=== PATIENT | male | born 1985 | race Caucasian/White ===

== ENCOUNTER 2021-10-14 14:52 | Outpatient (REF) | payer OTHER, SELFPAY ==
--- NOTE | ~2021-10-14 | XR_ITS ---
EXAMINATION: LEFT SHOULDER. C-SPINE. CLINICAL INFORMATION: Pain. Pain. COMPARISON: None TECHNIQUE: 3 views of the left shoulder. 2 views of the C-spine. FINDINGS: Left shoulder: There is no fracture, dislocation or destructive process. C-spine: No fracture or destructive lesion or alignment canal. Vertebral body and disc spaces are preserved. The lateral masses of C1 and odontoid are intact. XR/XR cervical spine 3V IMPRESSION: Unremarkable studies.
--- NOTE | ~2021-10-14 | XR_ITS ---
EXAMINATION: LEFT SHOULDER. C-SPINE. CLINICAL INFORMATION: Pain. Pain. COMPARISON: None TECHNIQUE: 3 views of the left shoulder. 2 views of the C-spine. FINDINGS: Left shoulder: There is no fracture, dislocation or destructive process. C-spine: No fracture or destructive lesion or alignment canal. Vertebral body and disc spaces are preserved. The lateral masses of C1 and odontoid are intact. XR/XR shoulder LT min 2V IMPRESSION: Unremarkable studies.
== END 2021-10-14 14:53 | disposition home or self-care (01) ==
LOC: HO.HMGCX 14:52
PROVIDERS: PCP Internal Medicine; Visit Provider Internal Medicine
DX: M25.512 Pain in left shoulder (principal); M75.82 Other shoulder lesions, left shoulder; M54.2 Cervicalgia
CPT/HCPCS: 72040; 73030

== ENCOUNTER → 2021-12-29 08:29 | Outpatient (BNVA) | payer OTHER, SELFPAY | PROVIDERS: PCP Internal Medicine; Visit Provider Physician Assistant | DX: M75.102 Unspecified rotator cuff tear or rupture of left shoulder, not specified as traumatic (principal) | CPT/HCPCS: 20610; 99202; J1040 ==

== ENCOUNTER → 2022-02-25 11:24 | Outpatient (BNVA) | payer OTHER, SELFPAY | PROVIDERS: PCP Internal Medicine; Visit Provider Physician Assistant | DX: M75.102 Unspecified rotator cuff tear or rupture of left shoulder, not specified as traumatic (principal) | CPT/HCPCS: 99212 ==

== ENCOUNTER 2022-12-01 09:03 | Outpatient (REF) | payer BC, MEDICAID, SELFPAY ==
[2022-12-01 11:27] LABS: MANUAL DIFF FLAG NO
[2022-12-01 12:03] LABS: Basophils Absolute Auto 0.1 X10*3/uL (0.0-0.2); Basophils Percent Auto 1.2 % (0-2); Eosinophils Absolute Auto 0.2 X10*3/uL (0.0-0.4); Eosinophils Percent Auto 2.9 % (0-4); Hematocrit 43.8 % (42.0-52.0); Imm Gran Abs Auto 0.05 X10*3/uL (0.00-0.03); Imm Gran Pct Auto 0.8 % (0.0-0.4); Lymphocytes Absolute Auto 1.8 X10*3/uL (1.2-4.9); Lymphocytes Percent Auto 29.9 % (20-40); Mean Corpuscular HGB Conc 34.2 g/dl (31.0-36.0); Mean Corpuscular Hemoglobin 29.6 pg (27.0-33.0); Mean Corpuscular Volume 86.4 fL (80.0-98.0); Mean Platelet Volume 10.7 fL (9.4-12.4); Monocytes Absolute Auto 0.5 X10*3/uL (0.1-1.2); Monocytes Percent Auto 9.1 % (2-11); Neutrophils Absolute Auto 3.3 x10*3/uL (2.0-8.3); Neutrophils Percent Auto 56.1 % (45-73); Platelet Count 311 X10*3/uL (160-400); Red Blood Count 5.07 X10*6/uL (4.60-5.80); Red Cell Distribution Width 12.9 % (11.0-16.0); White Blood Count 5.9 X10*3/uL (4.8-10.8)
[2022-12-01 12:11] LABS: Alanine Aminotransferase 197 U/L (0-40); Albumin Level 4.1 g/dL (3.5-5.0); Alkaline Phosphatase 73 U/L (39-117); Anion Gap 13 (12-20); Aspartate Amino Transferase 73 U/L (5-37); Bilirubin Total 0.6 mg/dL (0.0-1.0); Blood Urea Nitrogen 11 mg/dL (9-16); Calcium 9.2 mg/dL (8.4-10.2); Carbon Dioxide 27 mmol/L (22-29); Chloride 106 mmol/L (96-108); Cholesterol 178 mg/dL; Estimated Glomerular Filt Rate > 60; Glucose Fasting 94 mg/dL (60-99); HDL Cholesterol 34 mg/dL; LDL Cholesterol Calculated 125 mg/dl; Potassium 4.6 mmol/L (3.3-5.1); Sodium 141 mmol/L (135-145); Total Protein 6.7 g/dL (6.5-8.0); Triglycerides 97 mg/dL
[2022-12-01 13:06] LABS: Free T4 (Free Thyroxine) 0.96 ng/dL (0.71-1.85)
== END 2022-12-01 09:04 | disposition home or self-care (01) ==
LOC: HO.HMGCLDS 09:03
PROVIDERS: Internal Medicine; Visit Provider Internal Medicine
DX: F33.9 Major depressive disorder, recurrent, unspecified (principal); F41.1 Generalized anxiety disorder; J38.3 Other diseases of vocal cords; R03.0 Elevated blood-pressure reading, without diagnosis of hypertension; Z91.09 Other allergy status, other than to drugs and biological substances
CPT/HCPCS: 36415; 80053; 80061; 84439; 84443; 85025

== ENCOUNTER 2023-03-23 09:13 | Outpatient (REF) | payer BC, OTHER, SELFPAY ==
[2023-03-23 11:44] LABS: Alanine Aminotransferase 32 U/L (0-40); Albumin Level 4.4 g/dL (3.5-5.0); Alkaline Phosphatase 69 U/L (39-117); Anion Gap 12 (12-20); Aspartate Amino Transferase 20 U/L (5-37); Bilirubin Total 0.4 mg/dL (0.0-1.0); Blood Urea Nitrogen 10 mg/dL (9-16); Calcium 9.4 mg/dL (8.4-10.2); Carbon Dioxide 27 mmol/L (22-29); Chloride 106 mmol/L (96-108); Estimated Glomerular Filt Rate > 60; Glucose Random 90 mg/dL (60-115); Potassium 4.5 mmol/L (3.3-5.1); Sodium 140 mmol/L (135-145); Total Protein 7.2 g/dL (6.5-8.0)
[2023-03-23 12:06] LABS: TSH reflex Free T4 0.41 uIU/mL (0.32-4.0)
== END 2023-03-23 09:14 | disposition home or self-care (01) ==
LOC: HO.HMGCLDS 09:13
PROVIDERS: PCP Internal Medicine; Visit Provider Internal Medicine
DX: E05.90 Thyrotoxicosis, unspecified without thyrotoxic crisis or storm (principal); R79.89 Other specified abnormal findings of blood chemistry
CPT/HCPCS: 36415; 80053; 84443

== ENCOUNTER 2024-02-01 08:04 | Outpatient (AMB) | payer OTHER, SELFPAY ==
[2024-02-01 08:21] VITALS: BP 140/100; PULSE 95; TEMP 36.5; O2SAT 97; BMI 33.5
--- NOTE | 2024-02-01 08:21 | MHC.OFFWIV ---
Intake Vital Signs 02/01/24 08:21 Height 5 ft 11 in Weight 240 lb BMI 33.5 BP 140/100 H Blood Pressure Location Lt brachial Position Sitting Pulse 95 Pulse Source Pulse Oximeter Temp 97.7 F Temp Source Temporal Artery Scan Pulse Oximetry (%) 97 Intake Visit Reasons: EP ?Strep Intake Note: pt is here today for strep started 2 days ago Patient Tobacco Use Status: Former Tobacco user Quit Date: 2020 Allergies amoxicillin [AMOXICILLIN] Allergy (Unknown, Verified 02/01/24 08:24) FROM A penicillin G Allergy (Unknown, Verified 02/01/24 08:24) unknown penicillin V Allergy (Unknown, Verified 02/01/24 08:24) unknown Penicillins [PENICILLINS] Allergy (Unknown, Verified 02/01/24 08:24) FROM A INFANT Do you need a note to return to daycare/school/sports/work: Yes HPI HPI Comments History of Present Illness Details 38 y/o male patient who presents to walk in clinic with c/o Sore-throat x 2 days. PFSH Medical History Active asthma Anxiety Depressed Surgical History No pertinent past surgical history Family History Father No problems noted. Mother No problems noted. Paternal Grandmother Diabetes mellitus Paternal Grandfather Diabetes mellitus Social History Housing: Apartment Patient Tobacco Use Status: Former Tobacco user Quit Date: 2020 Years Smoked: 2.5 years e-Cigarette/Vaping Use: Never Used service: No Current occupational status: employed Current occupation: [employer]/lt hand Cognitive needs: No Hearing needs: No Vision needs: Yes Review of Systems Const All systems reviewed & are unremarkable except as noted in HPI and below Physical Exam Vital Signs: Last Vital Signs Temp 97.7 F 02/01/24 08:21 Pulse 95 02/01/24 08:21 BP 140/100 H 02/01/24 08:21 Pulse Ox 97 02/01/24 08:21 BMI result Body Mass Index 33.5 Const General: comfortable and no acute distress Orientation/consciousness: patient oriented x3 HEENT Head: Yes normocephalic Ears: external ears normal and TM's normal bilaterally General nose exam: Normal nasal mucous membranes and turbinates present and No nasal discharge present Face and sinus: Yes sinuses nontender Mouth: moist mucous membranes Throat: Yes posterior oropharynx normal Resp Effort & Inspection: normal respiratory effort and able to speak in complete sentences Auscultation: clear to auscultation bilaterally, no crackles, no rales, no rhonchi and no wheezes Cardio Rate: regular rate Rhythm: regular rhythm Neuro General: patient oriented x3 Psych Speech and movement: Normal speech and movement present Results AMB Rapid Strep AMB Rapid Strep Negative Last Edit by Octavia Martinez MA on 02/01/24 08:41 Results Reviewed Results Reviewed: Laboratory Last Values Strep Scn Rapid Clinic Negative 02/01/24 08:40 Assessment & Plan Assessment & Plan (1) Acute pharyngitis: Code(s): J02.9 - Acute pharyngitis, unspecified Qualifiers: Pharyngitis/tonsillitis etiology: unspecified etiology Qualified Code(s): J02.9 - Acute pharyngitis, unspecified Plan: - SARs - Acetaminophen for pain relief - OTC cold remedies - Rest and hydrate well with warm fluids. Orders: Orders SARS-CoV2/FLU/RSV Today R09.89 - Other specified symptoms and signs involving the circulatory and respiratory systems Coding Level of Care Code Est Pt Level 3 (25838) Diagnoses Acute pharyngitis, unspecified etiology J02.9 Pharyngitis/tonsillitis etiology: unspecified etiology Time Spent (min) 15
== END 2024-02-01 09:42 | disposition home or self-care (01) ==
PROVIDERS: PCP Internal Medicine; Visit Provider Nurse Practitioner Family
DX: J02.9 Acute pharyngitis, unspecified (principal)
CPT/HCPCS: 87880; 99213

== ENCOUNTER 2024-02-01 08:53 | Outpatient (REF) | payer OTHER, SELFPAY ==
[2024-02-01 11:40] LABS: Influenza A PCR NEGATIVE (Negative); Influenza B PCR NEGATIVE (Negative); Resp Syncy Virus RNA Qual PCR NEGATIVE (Negative); SARS COV2 PCR INHOUSE NEGATIVE (Negative)
== END 2024-02-01 08:54 | disposition home or self-care (01) ==
LOC: HO.LAB 08:53
PROVIDERS: Visit Provider Nurse Practitioner Family
DX: R09.89 Other specified symptoms and signs involving the circulatory and respiratory systems (principal)
CPT/HCPCS: 0241U